=== PATIENT | female | born 1985 | race Caucasian/White ===

== ENCOUNTER 2023-09-29 00:30 | Emergency (ER) | payer BC, MEDICAID ==
[2023-09-29 00:41] LABS: BASOPHILS ABSOLUTE AUTO 0.04 K/uL (0.00-0.20); BASOPHILS PERCENT AUTO 0.4 % (0.0-1.0); EOSINOPHILS ABSOLUTE AUTO 0.14 K/uL (0.00-0.45); EOSINOPHILS PERCENT AUTO 1.4 % (0.0-6.0); HEMATOCRIT 37.9 % (37.0-47.0); HEMOGLOBIN 13.2 g/dL (12.0-16.0); IMMATURE GRAN ABSOLUTE AUTO 0.03 K/uL (0.00-0.05); IMMATURE GRAN PERCENT AUTO 0.3 % (0.0-0.4); LYMPHOCYTES ABSOLUTE AUTO 2.69 K/uL (1.00-4.80); LYMPHOCYTES PERCENT AUTO 26.8 % (24.0-44.0); MEAN CORPUSCULAR HEMOGLOBIN 30.6 pg (28.0-32.0); MEAN CORPUSCULAR HGB CONC 34.8 g/dL (32.0-36.0); MEAN CORPUSCULAR VOLUME 87.9 fL (83.0-99.0); MEAN PLATELET VOLUME 10.4 fL (9.4-12.3); MONOCYTES ABSOLUTE AUTO 0.58 K/uL (0.00-0.80); MONOCYTES PERCENT AUTO 5.8 % (0.0-8.0); NEUTROPHILS ABSOLUTE AUTO 6.57 K/uL (1.80-7.70); NEUTROPHILS PERCENT AUTO 65.3 % (41.0-71.0); PLATELET COUNT,PLT 310 K/uL (150-400); RED BLOOD CELL COUNT 4.31 M/uL (4.10-5.30); WHITE BLOOD CELL COUNT,WBC 10.05 K/uL (3.9-11.3)
[2023-09-29] MEDS: Tetracaine HCl/PF 0.5% 4 ML Bottle EYERT ONE (00:47)
[2023-09-29] MEDS: Sodium Chloride 0.9% 10 ML Syringe FLUSH PRN (00:48)
[2023-09-29] MEDS: Sodium Chloride 0.9% 2.5 ML Syringe FLUSH PRN (00:48)
[2023-09-29 01:09] LABS: A/G RATIO 0.9 (0.9-1.6); ALBUMIN 3.8 g/dL (3.4-5.0); BILIRUBIN TOTAL 0.2 mg/dL (0.2-1.0); CALCIUM 9.2 mg/dL (8.5-10.1); CARBON DIOXIDE,CO2 23.6 mmol/L (21.0-32.0); CREATININE 0.9 mg/dL (0.6-1.0); EST CRCL DRUG DOSING (CG) 70.11 mL/min; POTASSIUM,K 3.9 mmol/L (3.5-5.1)
[2023-09-29] MEDS: Iopamidol 755 MG/ML 500 ML Multipack Bottle IVPUSH STA (01:12)
== END 2023-09-29 02:44 | disposition home or self-care (01) ==
LOC: MW.ED 00:30
DX: S00.83XA Contusion of other part of head, initial encounter (principal); Z91.013 Allergy to seafood; Z79.899 Other long term (current) drug therapy; Y07.010 Husband, current, perpetrator of maltreatment and neglect; Y04.0XXA Assault by unarmed brawl or fight, initial encounter
CPT/HCPCS: 36415; 70450; 70486; 70496; 70498; 71045; 72125; 80053; 81025; 85025; 99285; J3490; Q9967; 93005; 93010; 99283